=== PATIENT | male | born 1985 | race Caucasian/White ===

== ENCOUNTER 2018-03-18 14:44 | Emergency (ER) | payer MEDICAID ==
[2018-03-18 14:59] VITALS: BP 118/85
[2018-03-18] MEDS ORDERED: MELOXICAM 7.5 MG TABLET PO STA (15:21)
[2018-03-18] MEDS ORDERED: DEXAMETHASONE 10 MG/ML VIAL PO STA (15:21)
[2018-03-18] MEDS ORDERED: PENICILLIN VK 250 MG TABLET PO STA (15:21)
--- NOTE | 2018-03-18 15:22 | ED Physician Documentation ---
History of Present Illness - Stated complaint Stated Complaint: RT SIDE FACIAL PX/SWELLING - Chief complaint Chief Complaint: Heent - History obtained from History obtained from: Patient - History of Present Illness Timing: How many days ago (3) Pain level max: 9 Pain level now: 9 - Additonal information Additional information: 33-year-old male with right upper molar pain for the past 3 days. Worse with eating and drinking. Worse with chewing. Nothing makes it better. No fevers. No facial swelling. Does have a long history of dental issues. Has had issues with narcotic dependence in the past and would rather not be on narcotics. Does not currently have a dentist up here. Review of Systems Ten Systems: 10 systems reviewed and negative Constitutional: denies: Fever, Chills Throat: denies: Sore throat Respiratory: denies: Cough GI: denies: Nausea, Vomiting, Diarrhea Skin: denies: Rash Musculoskeletal: denies: Neck pain, Back pain Neurologic: denies: Headache PD PAST MEDICAL HISTORY - Past Medical History Past Medical History: Yes - Past Surgical History Past Surgical History: No - Present Medications Home Medications: Ambulatory Orders Medication Instructions Recorded Confirmed Meloxicam [Mobic] 15 mg PO DAILY PRN #20 tablet 03/18/18 Penicillin V Potassium 500 mg PO Q6HR #40 tablet 03/18/18 - Allergies Allergies/Adverse Reactions: Allergies Allergy/AdvReac Type Severity Reaction Status Date / Time No Known Drug Allergies Allergy Verified 03/18/18 14:59 - Living Situation Living Situation: reports: With family Living Arrangement: reports: At home - Social History Does the pt have substance abuse?: No - Family History Family history: reports: Non contributory PD ED PE NORMAL - Vitals Vital signs reviewed: Yes - General General: Alert and oriented X 3, No acute distress - HEENT HEENT: Moist mucous membranes, Other (Dental decay right upper molar. No gingival swelling or abscess. Tender to palpation) - Cardiac Cardiac: RRR - Respiratory Respiratory: No respiratory distress, Clear bilaterally - Derm Derm: Warm and dry - Neuro Neuro: Alert and oriented X 3 Results - Vitals Vitals: Vital Signs - 24 hr 03/18/18 14:57 Temperature 35.7 C L Heart Rate 97 Respiratory 14 Rate Blood Pressure 118/85 H O2 Saturation 98 Oxygen O2 Source Room air PD MEDICAL DECISION MAKING - ED course Complexity details: considered differential, d/w patient ED course: Patient with dental caries to the right upper molar. No facial swelling. No abscess. No cellulitis. Will place on antibiotics and NSAIDs. We will have him follow-up with his dentist. Patient counseled regarding signs and symptoms for which I believe and urgent re-evaluation would be necessary. Patient with good understanding of and agreement to plan and is comfortable going home at this time This document was made in part using voice recognition software. While efforts are made to proofread this document, sound alike and grammatical errors may occur. Departure - Departure Disposition: 01 Home, Self Care Clinical Impression: Pain due to dental caries Condition: Good Instructions: ED Tooth Pain Follow-Up: your,dentist within 1 week [Other] Prescriptions: Penicillin V Potassium 500 mg PO Q6HR #40 tablet Meloxicam [Mobic] 15 mg PO DAILY PRN #20 tablet PRN Reason: pain Comments: Take all antibiotics until gone. Return if you worsen. Follow-up with your doctor for further evaluation and care.
[2018-03-18] MEDS ORDERED: CHERRY SYRUP 10 ML UDC PO ONE (15:29)
== END 2018-03-18 15:40 | disposition home or self-care (01) ==
LOC: ED 14:44
DX: K02.9 Dental caries, unspecified (principal); K08.89 Other specified disorders of teeth and supporting structures
CPT/HCPCS: 99283; A9270